=== PATIENT | male | born 1985 | race Caucasian/White ===

== ENCOUNTER 2017-01-28 18:37 | Observation (INO) ==
--- NOTE | 2017-01-28 19:04 | Emergency Department Note ---
Disposition Clinical Impression: Cellulitis Qualifiers: Site of cellulitis: extremity Site of cellulitis of extremity: lower extremity Laterality: left Qualified Code(s): L03.116 - Cellulitis of left lower limb Disposition: Admitted As Inpatient Condition: Serious Time of Disposition: 22:43 Extremity Problem HPI - General Chief complaint: ED Extremity Problem,Nontraumatic Stated complaint: L leg swelling/redness x3 days Time Seen by Provider: 01/28/17 18:49 Source: patient, police Limitations: language barrier Nursing Notes Reviewed: Yes Vital Signs Reviewed: Yes - History of Present Illness HPI Narrative: Mr. Dugan is a 31-year-old male that presents for left lower extremity pain swelling with erythema for the past 3 days. Patient currently incarcerated, notes swelling began his foot 3 days ago, the following day noted increased swelling in his calf with erythema at that time he states he reported this to the nurse. Patient denies history cellulitis, and denies injury. Patient reports numbness and tingling in his leg and states the pain is a throbbing sensation; currently 10/10 in severity. He notes chills, sweats, vomiting. Denies bloody emesis, denies diarrhea or constipation, denies the abdominal pain. Patient states pain is worse with movement. He also notes discomfort and swelling in his left inguinal area. Currently has dorsalis pedis pulses bilaterally. Pt Subjective Complaint: extremity pain, extremity swelling Onset (ago): day(s) Consistency: Worsening Injury Location: left, lower extremity Pain Scale: 10 Quality: other (throbbing) Improves with: nothing Worsens with: range of motion Associated symptoms: Reports: fever, swelling, redness. Denies: chest pain, shortness of breath, abdominal pain - Related Data Home Medications Medication Instructions Recorded Confirmed No Known Home Drugs 01/28/17 01/28/17 Allergies Allergy/AdvReac Type Severity Reaction Status Date / Time No Known Allergies Allergy Verified 07/17/15 11:31 All systems ED: reviewed and negative except as stated. Constitutional: Reports: fever, chills Cardiovascular: Denies: chest pain Respiratory: Denies: cough, dyspnea Gastrointestinal: Reports: nausea, vomiting. Denies: abdominal pain Musculoskeletal: Reports: joint swelling (L ankle) Neurological: Reports: numbness, paresthesias (L lower extremity) Past Medical History - Past Medical History Attestation: Yes The following information was validated with the patient. Source: patient Medical history: Reports: no medical history Surgical history: Reports: other Psychiatric history: Reports: no psych history - Social History Smoking Status: Current every day smoker Smokeless Tobacco Status: No Alcohol use: Reports: occasionally Drug use: Reports: none Physical Exam - General Limitations: language barrier General appearance: alert, in no apparent distress - Head Head exam: atraumatic, normocephalic - Eye Eye exam: Present: normal appearance, EOMI, miosis - ENT ENT exam: normal exam, mucous membranes moist - Neck Neck exam: Present: normal inspection, full ROM - Chest Chest inspection: Present: normal inspection, symmetric chest wall rise - Respiratory Respiratory exam: Present: normal lung sounds bilaterally. Absent: respiratory distress - Cardiovascular Cardiovascular exam: Present: regular rate, normal rhythm, +S1, +S2 - Abdominal Exam Abdominal exam: Present: soft, Non-Tender, normal bowel sounds. Absent: distention, guarding, rebound - Expanded Lower Extremity Exam Hip/Pelvis exam: Present: tenderness (L inguinal region) Knee exam: Present: full ROM, erythema. Absent: swelling Lower leg exam: Present: tenderness, swelling, ecchymosis, erythema, other ( decreased ROM) Ankle exam: Present: tenderness, swelling, erythema Foot/toe exam: Present: other (2+ dorsal pedis pulses bilaterally) Neurovascular/Tendon exam: Present: normal capillary refill - Neurological Exam Neurological exam: Present: alert, oriented X3 - Psychiatric Psychiatric exam: Present: normal affect, normal mood - Skin Skin exam: Present: warm, dry, intact Course - Consultations Consultation #1: Spoke to Dr. Saucedo whom agreed to accept patient pending CT results. Time: 22:24 Vital Signs Temperature 98.3 F 01/28/17 18:39 Pulse Rate 72 01/28/17 18:39 Respiratory Rate 18 01/28/17 18:39 Blood Pressure 123/73 01/28/17 18:39 O2 Sat by Pulse Oximetry 100 01/28/17 18:39 Temperature 98.3 F 01/28/17 18:39 Pulse Rate 74 01/28/17 22:37 Respiratory Rate 18 01/28/17 22:53 Blood Pressure 126/76 01/28/17 22:53 O2 Sat by Pulse Oximetry 100 01/28/17 22:37 Oxygen Delivery Oxygen Delivery Room Air Extremity Problem, Nontraumati - Lab Data Lab results reviewed: Yes I reviewed the patient's lab results. Result diagrams: 01/28/17 19:16 01/28/17 19:16 Lab Results 01/28/17 01/28/17 01/28/17 Range/Units 19:16 19:16 19:16 WBC 21.5 H (4.3-11.1) K/mcL RBC 4.08 L (4.19-5.50) M/mcL Hgb 11.5 L (12.9-16.9) g/dL Hct 34.8 L (37.5-50.1) % MCV 85.3 (83.0-100.0) fL MCH 28.2 (28.0-33.3) pg MCHC 33.0 (31.6-35.5) g/dL RDW 14.6 H (11.5-14.5) % Plt Count 225 (140-400) K/mcL MPV 9.9 (9.4-12.4) fL Immature Gran % 0.6 (0-4) % Seg Neutrophils % 89.8 % Lymphocytes % 5.5 % Monocytes % 3.7 % Eosinophils % 0.2 % Basophils % 0.2 % Neutrophils # 19.4 H (1.6-8.9) K/mcL Lymphocytes # 1.2 (0.6-4.6) K/mcL Monocytes # 0.8 (0.0-1.3) K/mcL Eosinophils # 0.0 (0.0-0.6) K/mcL Basophils # 0.0 (0.0-0.2) K/mcL Sodium 135 L (136-145) mEq/L Potassium 3.9 (3.5-4.5) mEq/L Chloride 103 (98-109) mEq/L Carbon Dioxide 25 (19-29) mEq/L BUN 18 (8-26) mg/dL Creatinine 0.84 (0.72-1.25) mg/dL Est GFR ( Amer) > 60 (> 60) Est GFR (Non-Af Amer) > 60 (> 60) BUN/Creatinine Ratio 21 (6-26) Glucose 121 H (70-99) mg/dL Calculated Osmolality 283 (280-300) Lactic Acid 0.9 (0.5-2.2) mmol/L Calcium 8.7 (8.6-10.8) mg/dL - Radiology Data Radiology results reviewed: Yes I reviewed the patient's radiology results. Lower Extremity CT 01/28/17 19:32 IMPRESSION: Subcutaneous edema and skin thickening of the left lower leg below the level of the knee suggesting cellulitis. Small focal area of fluid measuring 3.3 x 0.6 x 3.5 cm in size along the posteromedial aspect of the mid left lower leg suggesting a subcutaneous abscess. Left inguinal and left pelvic lymphadenopathy suggesting reactive lymphadenopathy. Recommend follow-up to resolution. Small amount of free fluid in the dependent pelvis suggesting an inflammatory process. This is abnormal for a male patient. No acute bone or joint abnormality. No deep soft tissue infection. D/ / 01/28/2017 22:59:34 Florencio Carr MD / Bernadette Coe Interpreting Provider: Florencio Carr MD
[2017-01-28] MEDS ORDERED: Vancomycin 1,250 MG in D5% in Water 250 ML IVPB ONE (19:34)
--- NOTE | 2017-01-28 19:40 | Emergency Department Note ---
START Narrative - START START: I did see the patient with the [facility] admin Dr. tierney and I did participate in the important elements of history, exam, diagnosis and plan. Patient does have 3 days of left leg pain and swelling and redness and some lymph nodes are present on palpation in left groin. Patient's leg does have erythema as well as ecchymosis and I do not palpate any crepitus. There is edema. Dorsal pedal pulse is 2+. Patient will be started on vancomycin. I do not suspect DVT. He will be admitted to the hospital. Labs as well as CT scan to look for necrotizing soft tissue infection are pending 1938
[2017-01-28 21:18] LABS: Basophils % 0.2 %; Eosinophils % 0.2 %; Hematocrit 34.8 % (37.5-50.1); Hemoglobin 11.5 g/dL (12.9-16.9); Immature Granulocytes % 0.6 % (0-4); Lymphocytes # 1.2 K/mcL (0.6-4.6); Lymphocytes % 5.5 %; Mean Corpuscular Hemoglobin 28.2 pg (28.0-33.3); Mean Corpuscular Volume 85.3 fL (83.0-100.0); Mean Platelet Volume 9.9 fL (9.4-12.4); Monocytes # 0.8 K/mcL (0.0-1.3); Monocytes % 3.7 %; Neutrophils # 19.4 K/mcL (1.6-8.9); Platelet Count 225 K/mcL (140-400); Red Blood Count 4.08 M/mcL (4.19-5.50); Red Cell Distribution Width 14.6 % (11.5-14.5); Segmented Neutrophils % 89.8 %
[2017-01-28 21:29] LABS: BUN/Creatinine Ratio 21 (6-26); Blood Urea Nitrogen 18 mg/dL (8-26); Calcium 8.7 mg/dL (8.6-10.8); Carbon Dioxide 25 mEq/L (19-29); Chloride 103 mEq/L (98-109); Glucose 121 mg/dL (70-99); Osmolality,Calculated 283 (280-300); Potassium 3.9 mEq/L (3.5-4.5); Sodium 135 mEq/L (136-145); eGFR For African Americans > 60 (> 60); eGFR For Non-African Americans > 60 (> 60)
[2017-01-29] MEDS ORDERED: *HR* HYDROmorphone (PF) 1 MG/ML SYRINGE IVP PRN (08:20)
[2017-01-29] MEDS ORDERED: MOM Conc 10 ML UD.LIQ PO PRN (08:20)
[2017-01-29] MEDS ORDERED: Naloxone 0.4 MG/ML INJ IVP PRN (08:20)
[2017-01-29] MEDS ORDERED: Piperacillin/Tazobactam 4.5 GM in D5% in Water (Mini-Bag+) 100 ML IVPB STA (08:20)
[2017-01-29] MEDS ORDERED: Benzonatate 100 MG CAPSULE PO PRN (08:20)
[2017-01-29] MEDS ORDERED: Mag Hydrox/Al Hydrox/Simeth 30 ML UDC PO PRN (08:20)
[2017-01-29] MEDS ORDERED: Acetaminophen 325 MG TABLET PO PRN (08:20)
[2017-01-29] MEDS ORDERED: *HR* Promethazine 25 MG/ML VIAL IVP PRN (08:20)
[2017-01-29] MEDS ORDERED: Ketorolac 30 MG/ML VIAL IVP STA (08:20)
[2017-01-29] MEDS ORDERED: Ipratropium/Albuterol Neb 3 ML IH PRN (08:20)
[2017-01-29] MEDS ORDERED: *HR* LORazepam 0.5 MG TABLET PO PRN (08:27)
--- NOTE | 2017-01-29 08:33 | Internal Med History&Physical ---
Date of Encounter: 01/29/17 Time of Encounter: 08:30 Assessment and Plan (1) Cellulitis of left lower extremity Current visit: Yes Status: Acute . (2) Cutaneous abscess of left lower extremity Current visit: Yes Status: Acute . (3) SIRS (systemic inflammatory response syndrome) Current visit: Yes Status: Acute . (4) Sepsis affecting skin Current visit: Yes Status: Acute . (5) Ascending lymphangitis Current visit: Yes Status: Acute . (6) Lymphadenopathy, inguinal Current visit: Yes Status: Acute . Internal Medicine - H&P: HPI Chief complaint: Pain swelling and redness left lower leg Admitted From: Emergency Dept Plans for Post Hospital Care: Home History of present illness: Mr. Dugan is a 31 year old male admitted to [facility] via the emergency department when he is escorted by police to evaluate pain swelling and erythema of the left lower extremity of approximately 3 days' duration. Patient is currently incarcerated. Notes swelling began in his left foot approximately 3 days prior to this presentation and progressively ascended into the leg. Increasing swelling in his calf with discomfort especially at the weight-bearing was appreciated. The patient denies any prior history of cellulitis of the extremities. He does however provide a significant history of prior methicillin sensitive Staphylococcus aureus infection causing pneumonia and associated empyema of the right chest. This required chest tube placement and drainage of the empyema and finally VATS procedure (not confirmed). 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 He denies however any prior history of similar development requiring prolonged antibiotic coverage or surgical intervention. Numbness and tingling in his left leg especially. Pain when not escalated to some throbbing stabbing sensation at a 10/10 severity. He has experienced some feverishness and chills sweats nausea and vomiting. He denies any episodes of bleeding events, diarrhea or constipation, abdominal pain chest pain or flank pain. His lower extremity pain is increased with movement and no present is lessened at rest. He has also noted discomfort and swelling in his left inguinal area with this illness. Vital signs findings the patient afebrile pulse respiration was blood pressure normal. O2 saturation on room air 100%. CBC noted a white blood cell count of 21.5 and hemoglobin of 11.5 platelets at 225,000. RDW 14.6. Differential showed a increase in neutrophils. Metabolic panel was normal except mild hyponatremic at 135 and hyperglycemia at 121. Lactic acid 0.9. CT of the lower extremity demonstrated subcutaneous edema and skin thickening of the left lower leg below the knee suggesting cellulitis. Small focal area of fluid collection 3 x 3 x 0.6 x 3.5 cm in size along the posterior medial aspect of the mid left lower leg suggesting a subcutaneous abscess. Left inguinal and left pelvic lymphadenopathy suggestive of reactive lymphadenopathy noted. Small amount of free fluid in the dependent pelvis suggesting an inflammatory process also noted. Preliminary impression suggests progressive cellulitis of the left lower extremity with radiographic suggestion of evolving abscess of the posterior medial aspect of the mid left lower leg. Associated inflammatory left pelvic and left inguinal adenopathy and free fluid in the dependent pelvis also noted. Systemic inflammatory response syndrome and sepsis criteria have been met at presentation. Workup and treatments will progress preventatively. The patient was visited and interviewed and examined. Cumulative laboratory and radiographic data base will be considered and discussed. Pertinent ancillary medical records including ECW and PCI documentation when available was reviewed and considered. Given the patient's presenting concerns, past medical history, clinical findings and symptoms, he is admitted at this time will undergo further evaluation and disposition. Orders were written as per Computerized physician blood bank order control clerk system.......................................................................... .................... Consultative opinion will be sought as clinical circumstances justify. Pain management needs will be addressed. Laboratory /radiographic data base will be updated as appropriate. Studies include: Cultures of blood urine sputum, MRSA swab, cardiac injury panel, BNP, cpk, pt/inr, aptt, metabolic and hematologic panel, magnesium, phosphorus, ionized calcium, thyroid panel, lipid profile, A1c, C-peptide, CRP, sedimentation rate, respiratory infection profile, respiratory virus panel, blood gas, UA, UDS, lactic acid, serologies, etc. Precautions: Aspiration, fall, delirium protocol/surveillance initiated. Telemetry with continuous hemodynamic monitoring and pulse oximetry initiated. Empiric antibiotic coverage: Intravenous vancomycin and Zosyn pending culture data. Special studies: CT Leg/LL extremity, chest x-ray, telemetry, EKG, LLE venous US. Pulmonary toilet: Incentive spirometry. PRN: aerosol bronchodilator, mucolytic, antitussive, supplemental oxygen. Corticosteroid therapy PRN. CPAP/BiPAP supplemental oxygen deliveryPRN. Aerosol Mucomyst therapy PRN. Fluid and electrolyte repletion efforts will proceed. Careful attention to fluid balance and renal recovery will be emphasized. Avoidance of nephrotoxic exposure and adverse drug drug interaction in the setting of impaired renal function will be monitored closely. Acute coronary syndrome protocol/surveillance initiated. DVT and PUD prophylaxis initiated: PPI therapy, intermittent pneumatic cuffs. Subcutaneous heparin was held due to thrombocytopenia. Early ambulation will be encouraged. Immunization updates recommended. Influenza and pneumococcal vaccinations as part of ongoing preventative healthcare recommendations strongly recommended. Smoking cessation counseling briefly addressed. Patient accepts nicotine substitution during this admission. Advanced care directive discussion briefly addressed. Patient does not declare any healthcare restrictions at this time. Cardiovascular risk appraisal and cardiovascular risk reduction efforts will be emphasized. Physical/ occupational therapy may be counseled to evaluate patient's functional capacity and progressive mobility if circumstances justify. Nutrition/dietary education counseling may be considered as circumstances justify. Outpatient medication schedules will be reviewed, confirmed and facilitated as appropriate. Reconciliation of home treatments including adjustments, substitutions and reintroduction into the treatment regimen will address necessary maintenance therapies for chronic pre-existing medical conditions. Plan of care has been reviewed and discussed in detail with the patient. Questions addressed. Hospital course dictated by clinical findings, treatment response and potential consultative interventions. Patient is a risk for further acute clinical decline due to his findings, chief complaints and comorbid conditions. Condition is serious. Prognosis is guarded. CODE STATUS is full. Past Med Surg Social Fam HX - Past Medical History Source: old records reviewed Medical history: other (History of methicillin susceptible Staphylococcus aureus pneumonia with right empyema status post chest tube drainage and VATS procedure.) Psychiatric history: no psych history - Past Surgical History Surgical History: other ((?VATS procedure following) chest tube drainage of empyema.) - Social History Smoking Status: Current every day smoker Smokeless Tobacco Status: No Alcohol use: occasionally Drug use: none, other (Primary history of IVDU and non-IVDU. Patient reports abstinence greater than 8 years.) Occupational status: unemployed Current living situation: Home, With Family Activity Level: Independent ambulation, Mostly sedentary Recent Out of Country Travel Within the Last 8 Weeks: No Exposure or Possible Exposure to Illness During Travel: No - Family History Mother Living Status: Still Living Hx Family Cancer: Yes (Breast cancer) Internal Medicine - H&P: Meds No Known Home Drugs 01/28/17 [History] Allergies No Known Allergies Allergy (Verified 07/17/15 11:31) All Systems PM: A 10-system review of systems was performed and is negative for pertinent findings except as documented above in the HPI. Allergies Allergy/AdvReac Type Severity Reaction Status Date / Time No Known Allergies Allergy Verified 07/17/15 11:31 Patient Problems (Last Updated 01/29/17 @ 08:33 by Amaury Ash MD) Cellulitis (Acute Medical) L03.90 Cellulitis of left lower extremity (Acute Medical) L03.116 Cutaneous abscess of left lower extremity (Acute Medical) L02.416 SIRS (systemic inflammatory response syndrome) (Acute Medical) R65.10 Sepsis affecting skin (Acute Medical) L02.91 Contusion, multiple sites (Inactive Medical) Fall (Inactive Medical) - Constitutional Constitutional: as per HPI, chills, fever(s), malaise, no night sweats - EENT Eyes: as per HPI, no change in vision, no discharge, no pain, no photophobia Ears: as per HPI, no ear discharge, no ear pain, no tinnitus Nose, mouth and throat: as per HPI, bleeding gums, dental pain, other, no dysphagia, no nasal discharge, no neck pain, no sore throat - Cardiovascular Cardiovascular ROS IM: as per HPI, no chest pain, no diaphoresis, no dyspnea, no lightheadedness, no palpitations, no syncope - Respiratory Respiratory: as per HPI, no cough, no dyspnea, no wheezing, no excessive phlegm production - Gastrointestinal Gastrointestinal: as per HPI, nausea, vomiting, no abdominal pain, no diarrhea, no hematemesis, no hematochezia, no melena - Genitourinary Genitourinary ROS male: as per HPI - Musculoskeletal Musculoskeletal ROS IM: as per HPI, joint swelling (L ankle), other, no numbness , no tingling - Integumentary Integumentary IM: as per HPI, erythema, new lesions, rash, other, no unusual bruising - Neurological Neurological ROS: as per HPI, numbness (LLE), paresthesias, no confusion, no convulsions, no focal weakness, no tingling, no tremor(s) - Psychiatric Psychiatric: as per HPI - Endocrine Endocrine IM: as per HPI - Hematologic/Lymphatic Hematologic/Lymphatic: as per HPI, no easy bruising - Allergic/Immunologic Allergic/Immunologic: as per HPI - Constitutional Vitals: Temp Pulse Resp BP Pulse Ox 98.2 F 77 18 128/71 100 01/29/17 06:43 01/29/17 06:43 01/29/17 06:43 01/29/17 06:43 01/29/17 06:43 Vital Signs Temp Pulse Resp BP Pulse Ox 01/29/17 06:43 98.2 F 77 18 128/71 100 01/29/17 03:27 97.9 F 79 16 122/69 97 01/28/17 23:27 98.3 F 97 17 130/64 100 01/28/17 22:53 18 126/76 01/28/17 22:37 74 18 126/76 100 01/28/17 21:20 76 18 126/78 100 01/28/17 18:39 98.3 F 72 18 123/73 100 Intake and Output 01/28/17 01/29/17 01/29/17 23:59 07:59 15:59 Intake Total 0 / 0 Output Total 0 / 0 Balance 0 / 0 Intake: Oral 0 / 0 Output: Urine 0 / 0 Other: Weight 70 kg General appearance: Present: cooperative, disheveled, mild distress, A&O X 3, answers questions appropriately - Head Head exam: Present: atraumatic, normocephalic - Eye Eye exam: Present: EOMI, PERRL, conjuntiva pink, sclera anicteric Pupils: Present: normal accommodation, PERRL - ENT ENT exam: Present: mucous membranes moist, normal oropharynx (Very poor dentition.) - Neck Neck exam general surgery: Present: full ROM, supple, trachea midline. Absent: lymphadenopathy, nuchal rigidity - Respiratory Respiratory exam: Present: decreased breath sounds. Absent: accessory muscle use, CTAB, rales, rhonchi, wheezes - Cardiovascular Cardiovascular exam: Present: distant heart sounds, RRR, +S1, +S2. Absent: diastolic murmur, gallop, rubs, systolic murmur - GI/Abdominal GI/Abdominal exam: Present: normal bowel sounds, soft, no peritoneal signs. Absent: distended, tenderness - Extremities Exam Extremities exam: Present: calf tenderness, pedal edema, tenderness, warm, radial pulses palpable and symetrical. Absent: cyanotic, normal inspection - Expanded Lower Extremities Exam Lower Leg exam: Present: erythema, swelling, tenderness. Absent: full ROM, normal inspection, palpable cord Ankle exam: Present: erythema, swelling, tenderness. Absent: full ROM, normal inspection Foot/Toe exam: Present: erythema, swelling, tenderness. Absent: full ROM Neuro vascular tendon exam: Present: no vascular compromise, significant pain with passive ROM of distal joint. Absent: motor deficit, pulse deficit, sensory deficit Gait: Present: not tested/not observed - Neurological Exam Neurological exam: Present: alert, CN II-XII intact, oriented X3, no focal deficits. Absent: pronater drift, facial droop, speech deficit - Psychiatric Psychiatric exam: Present: normal affect, normal mood - Skin Skin exam: Present: dry, erythema, intact, rash, warm - Expanded Skin Exam Type of lesion: Present: abscess, rash Distribution of rash: Present: LLE Description of rash: Present: crusting, erythematous, fluctuant, macular, swelling, tenderness Internal Med - H&P Results - Labs CBC & Chem 7: 01/28/17 19:16 01/28/17 19:16 Labs: Vital Signs Temp Pulse Resp BP Pulse Ox 01/29/17 06:43 98.2 F 77 18 128/71 100 01/29/17 03:27 97.9 F 79 16 122/69 97 01/28/17 23:27 98.3 F 97 17 130/64 100 01/28/17 22:53 18 126/76 01/28/17 22:37 74 18 126/76 100 01/28/17 21:20 76 18 126/78 100 01/28/17 18:39 98.3 F 72 18 123/73 100 Intake and Output 01/28/17 01/29/17 01/29/17 23:59 07:59 15:59 Intake Total 0 / 0 Output Total 0 / 0 Balance 0 / 0 Intake: Oral 0 / 0 Output: Urine 0 / 0 Other: Weight 70 kg Abnormal lab results WBC 21.5 K/mcL (4.3-11.1) H 01/28/17 19:16 RBC 4.08 M/mcL (4.19-5.50) L 01/28/17 19:16 Hgb 11.5 g/dL (12.9-16.9) L 01/28/17 19:16 Hct 34.8 % (37.5-50.1) L 01/28/17 19:16 RDW 14.6 % (11.5-14.5) H 01/28/17 19:16 Neutrophils # 19.4 K/mcL (1.6-8.9) H 01/28/17 19:16 Sodium 135 mEq/L (136-145) L 01/28/17 19:16 Glucose 121 mg/dL (70-99) H 01/28/17 19:16 Laboratory Last Values WBC 21.5 K/mcL (4.3-11.1) H 01/28/17 19:16 RBC 4.08 M/mcL (4.19-5.50) L 01/28/17 19:16 Hgb 11.5 g/dL (12.9-16.9) L 01/28/17 19:16 Hct 34.8 % (37.5-50.1) L 01/28/17 19:16 MCV 85.3 fL (83.0-100.0) 01/28/17 19:16 MCH 28.2 pg (28.0-33.3) 01/28/17 19:16 MCHC 33.0 g/dL (31.6-35.5) 01/28/17 19:16 RDW 14.6 % (11.5-14.5) H 01/28/17 19:16 Plt Count 225 K/mcL (140-400) 01/28/17 19:16 MPV 9.9 fL (9.4-12.4) 01/28/17 19:16 Immature Gran % 0.6 % (0-4) 01/28/17 19:16 Seg Neutrophils % 89.8 % 01/28/17 19:16 Lymphocytes % 5.5 % 01/28/17 19:16 Monocytes % 3.7 % 01/28/17 19:16 Eosinophils % 0.2 % 01/28/17 19:16 Basophils % 0.2 % 01/28/17 19:16 Neutrophils # 19.4 K/mcL (1.6-8.9) H 01/28/17 19:16 Lymphocytes # 1.2 K/mcL (0.6-4.6) 01/28/17 19:16 Monocytes # 0.8 K/mcL (0.0-1.3) 01/28/17 19:16 Eosinophils # 0.0 K/mcL (0.0-0.6) 01/28/17 19:16 Basophils # 0.0 K/mcL (0.0-0.2) 01/28/17 19:16 Sodium 135 mEq/L (136-145) L 01/28/17 19:16 Potassium 3.9 mEq/L (3.5-4.5) 01/28/17 19:16 Chloride 103 mEq/L (98-109) 01/28/17 19:16 Carbon Dioxide 25 mEq/L (19-29) 01/28/17 19:16 BUN 18 mg/dL (8-26) 01/28/17 19:16 Creatinine 0.84 mg/dL (0.72-1.25) 01/28/17 19:16 Est GFR ( Amer) > 60 (> 60) 01/28/17 19:16 Est GFR (Non-Af Amer) > 60 (> 60) 01/28/17 19:16 BUN/Creatinine Ratio 21 (6-26) 01/28/17 19:16 Glucose 121 mg/dL (70-99) H 01/28/17 19:16 Calculated Osmolality 283 (280-300) 01/28/17 19:16 Lactic Acid 0.9 mmol/L (0.5-2.2) 01/28/17 19:16 Calcium 8.7 mg/dL (8.6-10.8) 01/28/17 19:16 - Impressions Lower Extremity CT 01/28/17 19:32 IMPRESSION: Subcutaneous edema and skin thickening of the left lower leg below the level of the knee suggesting cellulitis. Small focal area of fluid measuring 3.3 x 0.6 x 3.5 cm in size along the posteromedial aspect of the mid left lower leg suggesting a subcutaneous abscess. Left inguinal and left pelvic lymphadenopathy suggesting reactive lymphadenopathy. Recommend follow-up to resolution. Small amount of free fluid in the dependent pelvis suggesting an inflammatory process. This is abnormal for a male patient. No acute bone or joint abnormality. No deep soft tissue infection. D/ / 01/28/2017 22:59:34 Florencio Carr MD / Bernadette Coe Interpreting Provider: Florencio Carr MD - Attending Attestation Allergies No Known Allergies Allergy (Verified 07/17/15 11:31) Home Medications Medication Instructions Recorded Confirmed Type No Known Home Drugs 01/28/17 01/28/17 History I & O 01/26/17 01/27/17 01/28/17 01/29/17 23:59 23:59 23:59 23:59 Intake Total 0 / 0 Output Total 0 / 0 Balance 0 / 0 Weight 70 kg Intake: Oral 0 / 0 Output: Urine 0 / 0 Medications Acetaminophen (Tylenol) 650 mg PO Q6HR PRN PRN Reason: Mild Pain (1-3) Stop: 07/31/17 08:21 Al Hydrox/Mg Hydrox/Simethicone (Maalox) 15 ml PO Q6HR PRN PRN Reason: Dyspepsia Stop: 07/31/17 08:21 Albuterol/Ipratropium (Duoneb) 3 ml IH [id number] PRN; Protocol PRN Reason: Shortness Of Breath/Wheezing Stop: 07/31/17 08:21 Benzonatate (Tessalon) 200 mg PO TID PRN PRN Reason: Cough Stop: 07/31/17 08:21 Diphenhydramine HCl (Benadryl) 25 mg PO Q6HR PRN PRN Reason: Allergic Symptoms Stop: 07/31/17 08:28 Docusate Sodium (Colace) 100 mg PO DAILY ERIKA Stop: 07/31/17 09:01 Famotidine (Pepcid) 20 mg PO BID ERIKA Stop: 07/31/17 09:01 Guaifenesin (Mucinex) 600 mg PO BID ERIKA Stop: 07/31/17 09:01 Hydromorphone HCl (Dilaudid) 0.5 mg IVP Q4HR PRN PRN Reason: Severe Pain (7-10) Stop: 07/31/17 08:21 Sodium Chloride (0.9 % Sodium Chloride) 1,000 mls @ 75 mls/hr IVC .[id number] ERIKA Stop: 07/31/17 08:31 Piperacillin Sod/Tazobactam (Sod 4.5 gm/ Dextrose) 100 mls @ 100 mls/hr IVPB ONCE STA PRN Reason: Protocol Stop: 01/29/17 09:19 Piperacillin Sod/Tazobactam (Sod 3.375 gm/ Dextrose) 100 mls @ 25 mls/hr IVPB Q8HR ERIKA PRN Reason: Protocol Stop: 07/31/17 16:01 Vancomycin HCl 1,000 mg/ (Dextrose) 250 mls @ 167 mls/hr IVPB RPHPROT ERIKA PRN Reason: Protocol Stop: 07/31/17 09:01 Ketorolac Tromethamine (Toradol) 30 mg IVP ONCE STA Stop: 01/29/17 08:21 Lorazepam (Ativan) 0.5 mg PO HS PRN PRN Reason: Insomnia Stop: 07/31/17 08:28 Magnesium Hydroxide (Milk Of Magnesia Conc) 10 ml PO DAILY PRN PRN Reason: Indigestion Stop: 07/31/17 08:21 Melatonin (Melatonin) 3 mg PO HS ERIKA Stop: 07/31/17 21:01 Naloxone HCl (Narcan) 0.4 mg IVP Q2MIN PRN PRN Reason: Opioid Reversal Stop: 07/31/17 08:21 Nicotine (Nicoderm) 21 mg TD DAILY ERIKA PRN Reason: Protocol Stop: 07/31/17 09:01 Oxycodone HCl (Roxicodone) 10 mg PO Q6HR PRN PRN Reason: Moderate Pain (4-6) Stop: 07/31/17 08:21 Promethazine HCl (Phenergan) 12.5 mg IVP Q6HR PRN PRN Reason: Nausea And Vomiting Stop: 07/31/17 08:21 Discontinued Medications Vancomycin HCl 1,250 mg/ (Dextrose) 250 mls @ 167 mls/hr IVPB ONCE ONE PRN Reason: Protocol Stop: 01/28/17 21:03 Last Admin: 01/28/17 21:55 Dose: 167 mls/hr Nursing Notes 01/29/17 06:08 Nurse Note by Loan Camarena Late Entry: [address] Ash that the PT had been on the floor for a couple hours (Originally Dr. Saucedo was admitting this PT, he then informed this RN when a second message was sent regarding this PT that Dr. Ash was seeing for this PT) and Dr. Ash stated that he was working on admissions and would be getting to this PT shortly. Still awaiting orders at this time (0610). Initialized on 01/29/17 06:08 - END OF NOTE 01/29/17 03:38 Nurse Note by Loan Camarena This RN paged Dr. Saucedo a second time to obtain orders for PT and Dr. Saucedo stated that Dr. Ash is taking care of this PT. Notifying Dr. Ash now. Initialized on 01/29/17 03:38 - END OF NOTE 01/29/17 01:01 Nurse Note by Loan Camarena This RN notified Dr. Saucedo that PT has arrived to the floor and is experiencing 10/10 pain and requesting something to eat and drink. Initialized on 01/29/17 01:01 - END OF NOTE 01/28/17 23:07 Nurse Note by Ashley Pierre IV vancomycin placed on dial-a-flow as there are no IV pumps in ER. Initialized on 01/28/17 23:07 - END OF NOTE 01/28/17 22:10 Nurse Note by Ashley Pierre Pt to CT at this time. Initialized on 01/28/17 22:10 - END OF NOTE 01/28/17 22:10 Transport Report by Neema Sims Date: 01/28/17 Transport Method: Stretcher No Known Allergies Allergy (Verified 07/17/15 11:31) Resuscitation Status 01/28/17 19:32 CT LE LT w con [CT] Stat Mode Of Transportation: Stretcher Reason For Exam: Concern for NST infection vs cellulitis Order Doctor: Miller Richmond Exam Performed At:: [facility] Additional Notes/Special Instructions: LABS @2037 Allergic to Contrast: No Oxygen: Mental Status: Fall Risk: Isolation: Nurse Required for Transport: No ___ Yes Limb Restrictions: No ___ Yes Behavioral issue/Risk for Elopement: No ___ Yes Telemetry Room Notification: Destination: MRI XRAY STRESS ULTRASOUND CT DIALYSIS ENDO OTHER: Depart Time: Nurse: Transporter: Arrive Time: Received by: ___ Return Time: Nurse: Transporter: ] Initialized on 01/28/17 22:10 - END OF NOTE 01/28/17 21:09 Nurse Note by Ashley Pierre RN unable to gain IV access using ultrasound at this time. Initialized on 01/28/17 21:09 - END OF NOTE 01/28/17 20:39 Nurse Note by Ashley Pierre Lab is at bedside at this time. Initialized on 01/28/17 20:39 - END OF NOTE 01/28/17 20:31 Nurse Note by Ashley Pierre RN is at bedside to attempt IV with ultrasound. Initialized on 01/28/17 20:31 - END OF NOTE 01/28/17 19:52 Nurse Note by Ashley Pierre Lab is at bedside. This RN attempted IV access x 2 , with no success. Initialized on 01/28/17 19:52 - END OF NOTE 01/28/17 19:37 Nurse Note by Ashley Pierre Pt is at CT at this time. Initialized on 01/28/17 19:37 - END OF NOTE 01/28/17 19:28 Transport Report by Clifton Gu Date: 01/28/17 Transport Method: Stretcher No Known Allergies Allergy (Verified 07/17/15 11:31) Resuscitation Status 01/28/17 19:16 CT LE LT wo con [CT] Stat Mode Of Transportation: Stretcher Reason For Exam: concern for NST infection Order Doctor: Miller Richmond Exam Performed At:: [facility] Allergic to Contrast: No Oxygen: Mental Status: Fall Risk: Isolation: Nurse Required for Transport: No ___ Yes Limb Restrictions: No ___ Yes Behavioral issue/Risk for Elopement: No ___ Yes Telemetry Room Notification: Destination: MRI XRAY STRESS ULTRASOUND CT DIALYSIS ENDO OTHER: Depart Time: Nurse: Transporter: Arrive Time: Received by: ___ Return Time: Nurse: Transporter: ] Initialized on 01/28/17 19:28 - END OF NOTE Orders 01/28/17 19:16 Basic Metabolic Panel Stat Comment: Specimen: Send someone from the department to collect Complete Blood Count [HEME] Stat Comment: Specimen: Send someone from the department to collect Lactate [Lactic Acid ([facility] Only)] Stat Comment: Specimen: Send someone from the department to collect 01/28/17 19:32 CT LE LT w con [CT] Stat Mode Of Transportation: Stretcher Reason For Exam: Concern for NST infection vs cellulitis Order Doctor: Miller Richmond Exam Performed At:: [facility] Additional Notes/Special Instructions: LABS @2038 Allergic to Contrast: No 01/28/17 19:34 Vancomycin [Vancocin] 1,250 mg D5% in Water [Dextrose 5%] 250 ml IVPB ONCE 01/28/17 21:[address] Stat Comment: Reason for Visit: left LE cellulitis 01/29/17 08:20 Falls precautions (Travon-Beard [RC] ONCE Vital Signs Assessment [RC] Q4H Activated Partial Thrombo Time [COAG] Routine Specimen: Send someone from the department to collect Comment: C-Reactive Protein Routine Specimen: Send someone from the department to collect Comment: Complete Blood Count [HEME] Routine Specimen: Send someone from the department to collect Comment: Comprehensive Metabolic Panel Routine Specimen: Send someone from the department to collect Comment: Drug Screen, Urine [UCHEM] Routine Specimen: Pre-Collection Label Comment: Erythrocyte Sedimentation Rate [HEME] Routine Specimen: Send someone from the department to collect Comment: Hgb A1C Routine Specimen: Send someone from the department to collect Comment: Lactic Acid ([facility] Only) Routine Specimen: Send someone from the department to collect Comment: Magnesium Routine Specimen: Send someone from the department to collect Comment: Phosphorous Routine Specimen: Send someone from the department to collect Comment: Prothrombin Time INR [COAG] Routine Specimen: Send someone from the department to collect Comment: Thyroid Stimulating Hormone Routine Specimen: Send someone from the department to collect Comment: Urinalysis reflex Microscopic [URIN] Routine Specimen: Send someone from the department to collect Comment: Venous Blood Gas Routine Specimen: Send someone from the department to collect Comment: Acetaminophen [Tylenol] 650 mg PO Q6HR PRN Benzonatate [Tessalon] 200 mg PO TID PRN HYDROmorphone (PF) [Dilaudid] 0.5 mg IVP Q4HR PRN Ipratropium/Albuterol Neb [Duoneb] 3 ml IH [id number] PRN Ketorolac [Toradol] 30 mg IVP ONCE STA MOM Conc [Milk of Magnesia Conc] 10 ml PO DAILY PRN Mag Hydrox/Al Hydrox/Simeth [Maalox] 15 ml PO Q6HR PRN Naloxone [Narcan] 0.4 mg IVP Q2MIN PRN OxyCODONE Immed Rel [Roxicodone] 10 mg PO Q6HR PRN Piperacillin/Tazobactam [Zosyn] 4.5 gm D5% in Water (Mini-Bag+) [Dextrose 5% ( Minibag+) 100 ML] 100 ml IVPB ONCE Promethazine [Phenergan] 12.5 mg IVP Q6HR PRN Resuscitation Status: Active [RES] Routine Resuscitation Status: Full Code Comment: 01/29/17 08:21 Measure intake and output [RC] QSHIFT Measure weight [RC] DAILY Peripheral IV [RC] CONT Placement to Observation Routine Physician Instructions: Reason for Visit: Cellulitis left lower extremity Is VTE Prophylaxis Indicated?: Yes 01/29/17 08:27 DiphenhydraMINE [Benadryl] 25 mg PO Q6HR PRN LORazepam [Ativan] 0.5 mg PO HS PRN 01/29/17 08:30 0.9 % Sodium Chloride 1,000 ml IVC 75 mls/hr 01/29/17 09:00 Docusate [Colace] 100 mg PO DAILY Famotidine [Pepcid] 20 mg PO BID GuaiFENesin ER [Mucinex] 600 mg PO BID Nicotine Patch [Nicoderm] 21 mg TD DAILY Vancomycin [Vancocin (wt based)] 1,000 mg D5% in Water [Dextrose 5%] 250 ml IVPB RPHPROT 01/29/17 16:00 Piperacillin/Tazobactam [Zosyn] 3.375 gm D5% in Water (Mini-Bag+) [Dextrose 5 % (Minibag+) 100 ML] 100 ml IVPB Q8HR 01/29/17 21:00 Melatonin 3 mg PO HS 01/29/17 Breakfast Regular Diet Diet Modifications: 02/04/17 08:20 Urinalysis reflex Microscopic [URIN] Routine Specimen: Send someone from the department to collect Comment: Patient Problems (Last Updated 01/28/17 @ 23:14 by Miller Richmond DO) Cellulitis (Acute) Vital Signs Temp Pulse Resp BP Pulse Ox 01/29/17 06:43 98.2 F 77 18 128/71 100 01/29/17 03:27 97.9 F 79 16 122/69 97 01/28/17 23:27 98.3 F 97 17 130/64 100 01/28/17 22:53 18 126/76 01/28/17 22:37 74 18 126/76 100 01/28/17 21:20 76 18 126/78 100 01/28/17 18:39 98.3 F 72 18 123/73 100 Laboratory Results 01/28/17 01/28/17 01/28/17 Range/Units 19:16 19:16 19:16 WBC 21.5 H (4.3-11.1) K/mcL RBC 4.08 L (4.19-5.50) M/mcL Hgb 11.5 L (12.9-16.9) g/dL Hct 34.8 L (37.5-50.1) % MCV 85.3 (83.0-100.0) fL MCH 28.2 (28.0-33.3) pg MCHC 33.0 (31.6-35.5) g/dL RDW 14.6 H (11.5-14.5) % Plt Count 225 (140-400) K/mcL MPV 9.9 (9.4-12.4) fL Immature Gran % 0.6 (0-4) % Seg Neutrophils % 89.8 % Lymphocytes % 5.5 % Monocytes % 3.7 % Eosinophils % 0.2 % Basophils % 0.2 % Neutrophils # 19.4 H (1.6-8.9) K/mcL Lymphocytes # 1.2 (0.6-4.6) K/mcL Monocytes # 0.8 (0.0-1.3) K/mcL Eosinophils # 0.0 (0.0-0.6) K/mcL Basophils # 0.0 (0.0-0.2) K/mcL Sodium 135 L (136-145) mEq/L Potassium 3.9 (3.5-4.5) mEq/L Chloride 103 (98-109) mEq/L Carbon Dioxide 25 (19-29) mEq/L BUN 18 (8-26) mg/dL Creatinine 0.84 (0.72-1.25) mg/dL Est GFR ( Amer) > 60 (> 60) Est GFR (Non-Af Amer) > 60 (> 60) BUN/Creatinine Ratio 21 (6-26) Glucose 121 H (70-99) mg/dL Calculated Osmolality 283 (280-300) Lactic Acid 0.9 (0.5-2.2) mmol/L Calcium 8.7 (8.6-10.8) mg/dL Assessments/Treatments ED Discharge Assessment Start: 01/28/17 18: 39 Freq: Status: Active Document 01/28/17 22:53 MPS (Rec: 01/28/17 22:54 [facility] [id number]) ED Discharge Assessment ED Discharge Disposition Admitted Med Rec/Patient Pharmacy Completed? Yes Admitted to 3NE Bed assigned [id number] Transported by equipment maintenance technician Transported with IV Report given to Nurse Care transferred to (name/credentials) Loan RN Information relayed patient's care treatments medications given condition recent/anticipated changes Clinical Documentation Summary Provided Yes Pain Scale 2 Pain Scale Used Standard (1-10) Blood Pressure 126/76 Heart rate 74 Respiratory Rate 18 Oxygen Delivery Room Air Oxygen Saturation 99 Critical Care Minutes 45 ED Nontraumatic Extremity Injury Assmnt Start: 01/28/17 18: 39 Freq: Status: Complete Document 01/28/17 18:59 AMP (Rec: 01/28/17 19:03 AMP [id number]) Extremity Problem Nontraumatic Symptoms/Complaint Extremity Pain Extremity Swelling Onset 1 week Consistency Constant Context Unknown Improves With Nothing Worsens With Weight Bearing Walking Associated Symptoms Denies Other Symptoms Level Of Consciousness Awake Alert Appropriate Follows Commands Patient Orientation Person Place Time Name Age Date of Day of Month Day of Week Month Year Time of Day Respiratory Depth Normal Respiratory Effort Normal for Patient Respiratory Pattern Regular Left Lower Extremity Pain Description Burning Throbbing Intensity 10 Scale Used Numeric (1 - 10) Capillary Refill < 3 Seconds Left Leg Strength Mild Weakness Left Leg Movement Description +4 - Full ROM, Less Than Normal Strength. Left Lower Extremity Edema Type Pitting Edema Degree 2+ Left Lower Leg Skin Color/Appearance Red Temperature Warm ED Comment Pt states he started developing a red rash to LLE with edema 3 days ago that has became worse and has difficulty ambulating Fall Precautions Acute Start: 01/28/17 23: 27 Freq: Q12H Status: Active Document 01/28/17 23:47 AUGIE (Rec: 01/28/17 23:54 AUGIE [id number]) Macias Lyles Fall Risk Assessment Tool Age less than60 years age (0 points) Fall History One fall within the last 6 months before admission (5 points) Elimination, Bowel, and Urine N/A (0 pts) Medications: Includes BUILDINGS AND GROUNDS SUPERVISOR/opiates, N/A (0 points) antivulsants, ant-hypertensives, diuretics, hypnotics, Patient Care Equipment: Any equipment One present (1 point) that tethers patient (e.g. IV infusions, chest tube, indwelling Mobility Requires assistance or supervision for transfer/ ambulation (2 points) Unsteady gait (2 points) Cognition N/A (0 points) Total Fall Risk Score 10 Fall Risk Category Moderate Risk (6-13) Fall Risk Interventions Low Risk Interventions Bed in lowest position Top side rails up x 2 Secure brake on bed Use properly fitting non-skid footwear Call light and frequently needed objects within reach Encourage patients/families to call for assistance when needed Fall education including risk assessment, injury risk and routine/ Inspect environment for safety and communication risk Supervise and assist with toileting/ADLs as needed Moderate Risk Interventions Institue fall-risk tooklit ( yellow flag, yellow non-skid socks and Frequent reorientation for confused patients IV-Invasive Line Management Start: 01/28/17 23: 27 Freq: Q4H Status: Active Document 01/28/17 23:47 AUGIE (Rec: 01/28/17 23:54 AUGIE [id number]) IV/Invasive Line Assessment Left Upper Arm Reason for Line Insertion/Rationale for Replace Lost Fluids Insertion Maintain Electrolyte Balance Provide Access for IV Medication(s) Provide Access for Blood Provide Access for Emergency Gauge (gauge) 18 IV Catheter Type Peripheral IV Site Observation Patent Site Observation Intervention Inspected Line Dressing Applied Window Dressing Dry/Intact Line Care Saline Flush P-Locked Labs drawn from Line* No Document 01/29/17 04:03 AUGIE (Rec: 01/29/17 04:05 AUGIE [id number]) IV/Invasive Line Assessment Left Upper Arm Reason for Line Insertion/Rationale for Replace Lost Fluids Insertion Maintain Electrolyte Balance Provide Access for IV Medication(s) Provide Access for Blood Provide Access for Emergency Gauge (gauge) 18 IV Catheter Type Peripheral IV Site Observation Patent Site Observation Intervention Inspected Line Dressing Applied Window Dressing Dry/Intact Line Care Saline Flush P-Locked Labs drawn from Line* No Initial Patient Assessment Start: 01/28/17 23: 27 Freq: .ONCE Status: Active Document 01/28/17 23:29 AUGIE (Rec: 01/28/17 23:37 AUGIE [id number]) General Questions Date of Arrival on Unit 01/28/17 Time of Arrival on Unit 23:20 Admitted From Emergency Dept Chief Complaint Left leg pain/sweeling/redness Onset of Chief Complaint 01/25/17 History Provided By Patient Orientation To Call Light Bed Phone TV Bathroom Smoking Policy Visiting Hours Procedures ID Bracelet On Emergency Contact Name Pat So Relationship to Patient Emergency Contact Bands applied ID band Patient Health Portal Patient was provided information on Yes accessing patient portal Patient Requests Portal Enrollment No Reason No Portal Enrollment Other Malnutrition Screening Tool (MST) Have You Recently Lost Weight Without No Trying Advance Directives Advance Directives No Advance Directives Information Provided Yes Patient Rights Copy of Rights Given and Verbalizes Yes Understanding Tobacco Free [place]: Copy of AHS Yes Statement Given and Patient Verbalizes Understanding Communication Ability Preferred Language Filipino Manager Desktop Required No Ability to Follow Directions Excellent Able to Read Yes Able to Write Yes Communication Tools None Learning Preferences Discussion Hearing Ability Normal Visual Assistive Devices None Pain Assessment Do You Have Any Ongoing (Chronic) Pain No Problems Educated on Pain Scale Yes Past Medical History Medical history no medical history Male Surgical History other Additional surgical history "Part of right lung removed" about 3 years ago Psychiatric history no psych history Smoking Status Current every day smoker Smokeless Tobacco Status No Alcohol use occasionally Drug use none Occupational status employed Current living situation Home With Family Other Activity level Independent ambulation Recent Out of Country Travel Within the No Last 8 Weeks Exposure or Possible Exposure to Illness No During Travel Additional social history PT is currently in the [facility] Family History-Meaningful Use Mother Living Status Still Living Hx Family Cancer Yes: Breast cancer Psychosocial Over Age 75 and Lives Alone or Over Age No 80 Potential Need for Follow-up Care (ECF, No Home Health, ECT) Developmentally Disabled or History of No Mental Health Problems Diagnosis with Assisted Need or No Terminal Implications Financial Concerns No Suspected Abuse or Neglect No Suicidal or Homicidal Ideation No Functional Assessment Employment Status Program Development Specialist Employed Eating (Feeding) Ability Independent Bathing Ability Independent Upper Body Dressing Ability Independent Lower Body Dressing Ability Independent Ambulation Ability Independent Toileting Ability Independent Bladder Continent Bowel Continent Normal Bowel Pattern 1 to 3 Times Weekly Date of Last Known Bowel Movement 01/25/17 Intake and Output, Strict Start: 01/28/17 23: 27 Freq: Q8H Status: Active Document 01/28/17 23:27 DFD (Rec: 01/29/17 00:20 DFD [id number]) Intake and Output Intake, Oral Amount 0 Output, Urine Amount 0 Measure weight Start: 01/28/17 23: 27 Freq: Status: Active Document 01/28/17 23:27 DFD (Rec: 01/29/17 00:21 DFD [id number]) Height and Weight Height 1.91 m Weight 70 kg Weight Measurement Method Built in [facility] Body Mass Index (BMI) 19.26 BMI Classification Normal Oxygen administration Start: 01/28/17 23: 27 Freq: Q12H Status: Active Document 01/28/17 23:47 AUGIE (Rec: 01/28/17 23:54 AUGIE [id number]) Oxygen Oxygen Delivery Method Room Air Comment PT states no JORDY/SOB at this time, will conitnue to monitor Patient Belongings Start: 01/28/17 23: 27 Freq: .ONCE Status: Active Document 01/28/17 23:29 AUGIE (Rec: 01/28/17 23:37 AUGIE [id number]) Patient Belongings Belongings With Patient on Admission Yes At Bedside Patient Belongings Pants Shirt Patient Rounding Start: 01/28/17 18: 39 Freq: Q30M Status: Active Document 01/28/17 18:59 AMP (Rec: 01/28/17 19:03 AMP [id number]) Patient Rounding Safety Call Light Within Reach Bed Position Low Bed Brake On Side Rails Up X1 Are the Floors Free From Trip Hazards? Yes Is the Room Free From Clutter? Yes Rounding Completed? Yes Patient Rounding Updated patient/family on Plan of Care Checked for Patient Positioning Patient Personal Items Placed Within Reach Checked Patient Pain Level Patient Awake Patient Rounding Start: 01/28/17 23: 27 Freq: Q1H Status: Active Document 01/28/17 23:47 AUGIE (Rec: 01/28/17 23:54 AUGIE [id number]) Hourly Rounding Hourly Rounding Checked for Patient Positioning Patient Personal Items Placed Within Reach Checked Patient Pain Level Hourly Rounding Completed Yes Patient Awake Is family present? No Comment Officer from [facility] with PT Equipment in Use Specialty Bed Safety Call Light Within Reach Bed Position Low Fall Precautions Phone Within Reach Bed Brake On Side Rails Up X2 Are the Floors Free From Trip Hazards? Yes Is the Room Free From Clutter? Yes Turn and Postion Bedrest No Turn Q 2HR No Patient Position Back Document 01/29/17 00:49 AUGIE (Rec: 01/29/17 00:49 AUGIE [id number]) Hourly Rounding Hourly Rounding Checked for Patient Positioning Patient Personal Items Placed Within Reach Checked Patient Pain Level Hourly Rounding Completed Yes Patient Awake Is family present? No Equipment in Use Specialty Bed Safety Call Light Within Reach Bed Position Low Fall Precautions Phone Within Reach Bed Brake On Side Rails Up X2 Are the Floors Free From Trip Hazards? Yes Is the Room Free From Clutter? Yes Turn and Postion Bedrest No Turn Q 2HR No Patient Position Back Document 01/29/17 02:00 DFD (Rec: 01/29/17 02:03 DFD [id number]) Hourly Rounding Hourly Rounding Checked for Patient Positioning Patient Helped to Bathroom or Assisted with Bedpan or Urinal Patient Personal Items Placed Within Reach Checked Patient Pain Level Hourly Rounding Completed Yes Patient Awake Is family present? No Safety Call Light Within Reach Bed Position Low Bed Exit Alarm Fall Precautions Phone Within Reach Bed Brake On Side Rails Up X2 Are the Floors Free From Trip Hazards? Yes Is the Room Free From Clutter? Yes Turn and Postion Bedrest No Turn Q 2HR No Patient Position Back Positioning Aides Pillows Document 01/29/17 04:03 AUGIE (Rec: 01/29/17 04:05 AUGIE [id number]) Hourly Rounding Hourly Rounding Checked for Patient Positioning Patient Personal Items Placed Within Reach Checked Patient Pain Level Hourly Rounding Completed Yes Patient Resting With Eyes Closed Is family present? No Equipment in Use Specialty Bed Safety Call Light Within Reach Bed Position Low Fall Precautions Phone Within Reach Bed Brake On Side Rails Up X2 Are the Floors Free From Trip Hazards? Yes Is the Room Free From Clutter? Yes Turn and Postion Bedrest No Turn Q 2HR No Patient Position Back Document 01/29/17 06:43 FLORENTIN (Rec: 01/29/17 06:47 FLORENTIN [id number]) Hourly Rounding Hourly Rounding Checked for Patient Positioning Patient Personal Items Placed Within Reach Hourly Rounding Completed Yes Patient Awake Is family present? Yes Safety Call Light Within Reach Bed Position Low Bed Exit Alarm Fall Precautions Phone Within Reach Bed Brake On Side Rails Up X2 Are the Floors Free From Trip Hazards? Yes Is the Room Free From Clutter? Yes Turn and Postion Bedrest No Turn Q 2HR No Patient Position Back Document 01/29/17 07:15 [facility] (Rec: 01/29/17 08:30 [facility] [id number]) Hourly Rounding Hourly Rounding Checked for Patient Positioning Patient Personal Items Placed Within Reach Hourly Rounding Completed Yes Patient Awake Is family present? Yes Safety Call Light Within Reach Bed Position Low Bed Exit Alarm Fall Precautions Phone Within Reach Bed Brake On Side Rails Up X2 Are the Floors Free From Trip Hazards? Yes Is the Room Free From Clutter? Yes Turn and Postion Bedrest No Document 01/29/17 08:10 FLORENTIN (Rec: 01/29/17 08:10 [place] [id number]) Hourly Rounding Hourly Rounding Checked for Patient Positioning Patient Personal Items Placed Within Reach Hourly Rounding Completed Yes Patient Sleeping Is family present? Yes Safety Call Light Within Reach Bed Position Low Bed Exit Alarm Fall Precautions Phone Within Reach Bed Brake On Side Rails Up X2 Are the Floors Free From Trip Hazards? Yes Is the Room Free From Clutter? Yes Turn and Postion Bedrest No Turn Q 2HR No Patient Position Back Saline lock insertion/management Start: 01/28/17 21: 49 Freq: Status: Complete Document 01/28/17 21:49 MPS (Rec: 01/28/17 21:50 MPS [id number]) IV Insertion/Site Assessment IV Attempt 4 Successful Successful Blood drawn and sent to Lab No Left Upper Arm IV Established HOTEL OR MOTEL MANAGER No Date of Insertion 01/28/17 Time of Insertion 21:49 Reason for IV Insertion Provide Access for IV Medication(s) IV Catheter Type Peripheral IV Gauge (gauge) 18 Site Observation Patent Dressing Applied Transparent Dressing Dry/Intact Patient Tolerance Tolerated Well Sepsis Screening Start: 01/28/17 23: 27 Freq: Q8H Status: Active Document 01/28/17 23:47 AUGIE (Rec: 01/28/17 23:54 AUGIE [id number]) Sepsis Screening Sepsis Infection Criteria Present suspected infection Sepsis SIRS Criteria WBC > 12k or < 4k or bands > 10% Sepsis Screen No Definite Risk Sepsis Action Taken no action required Skin Risk Assessment Scale Start: 01/28/17 23: 27 Freq: Q12H Status: Active Document 01/28/17 23:47 AUGIE (Rec: 01/28/17 23:54 AUGIE [id number]) Skin Risk Assessment Scale Moisture Risk Rarely Moist Sensory Perception No Impairment Activity Risk Walks Occasionally Mobility Risk Slightly Limited Nutrition Risk Adequate Friction & Shear Risk No Apparent Problem Skin Risk Total Score (points) 20 System Review Start: 01/28/17 23: 27 Freq: Q8H Status: Active Document 01/28/17 23:47 AUGIE (Rec: 01/28/17 23:54 AUGIE [id number]) Pain Assessment Pain Present Reports Pain Left Lower Extremity Pain Intensity 10 Description Throbbing Scale Used Numeric (1 - 10) Pain Intervention Ice Neurological Assessment Eye Opening Spontaneous Motor Obeys Commands Verbal Oriented Coma Scale Total 15 Neurologic Status Alert Patient Orientation Person Place Time Arousable To Name Speech Pattern Normal rate Normal rhythm Normal tone Appropriate Clear Coherent Patient Behavior Appropriate Cooperative Mood Description Calm Relaxed Appropriate Bilateral Pupil Reaction Reactive Pupil [place] Equal Scleral Edema No Left Leg Strength Normal for Patient Administrative Assistant Coordinator Strength Equal Push/Pull Equal Numbness/Tingling No Facial Symmetry Symmetrical Cardiovascular Assessment Signs and Symptoms None Heart Sounds S1 & S2 Pulse Rhythm Regular Jugular Vein Distention None Capillary Refill < 3 Seconds Circulatory Tenderness Description None Right Radial 2+ Left Radial 2+ Right Dorsalis Pedis 2+ Left Dorsalis Pedis 2+ Right Posterior Tibialis 2+ Left Posterior Tibialis 2+ Left Lower Extremity Type Non-Pitting Mechanical Prophylaxis No Respiratory Assessment Respiratory Symptoms None Effort Spontaneous Non-Labored Depth Normal Respiratory Pattern Regular Chest Shape Normal Expansion Symmetrical All Lung [place] Clear Oxygen Delivery Method Room Air Cough Description None Sputum Amount None Respiratory Comment: PT states no JORDY/SOB at this time, will continue to monitor Gastrointestinal Assessment Abdomen Description Soft Non-Tender Large Round 3 or more loose stools, in less than 24 No hours Nausea/Vomiting Presence None GI Comment: PT states has been experiencing N/V the last couple days but none at this time All Four Quadrants Active Flatus Presence Present Genitourinary Assessment Genitourinary Symptoms None Bladder Pattern Normal Voiding Method Urinal Bladder Distention None Suprapubic Tenderness with Palpation No Comment: No urine to assess at this time, will continue to monitor Integumentary Assessment Nail Bed Appearance [place] Temperature Warm Moisture Dry Turgor Normal Color Normal All Pressure Points Assessed Yes Evidence of Incision/Wounds/Breakdown No Mucous membranes moist, pink and intact Yes Oral Cavity Normal Musculoskeletal Assessment Musculoskeletal Symptoms Generalized Weakness Teaching Record Start: 01/28/17 23: 27 Freq: Q12H Status: Active Document 01/28/17 23:27 DFD (Rec: 01/29/17 00:20 DFD [id number]) Teaching Record: General Education Topics Hospital Environment Equipment Use Response Verbalize understanding Methods Discussion Recipient Patient Education Provided: Details use of call light and tv remote Thrombosis Risk Factor Assessment Start: 01/28/17 23: 27 Freq: .ONCE Status: Active Document 01/28/17 23:29 AUGIE (Rec: 01/28/17 23:37 AUGIE [id number]) Thrombosis Risk Factor Assessment Other Risk Factors No Triage Start: 01/28/17 18: 39 Freq: Status: Complete Document 01/28/17 18:39 MAS (Rec: 01/28/17 18:41 MAS [id number]) Triage Chief Complaint triage ED Extremity Problem, Nontraumatic Patient Stated Complaint Left thigh and calf redness JANEL 3 Onset (ago) day(s) Description of Symptoms Patient with three days of left calf and thigh swelling and redness. Patient in police custody. General Appearance alert in no apparent distress Work Related Injury? No Mode of arrival ambulatory Source patient police Limitations language barrier Ebola Risk: Travel/Contact With Anyone No From Affected Area/s Has Patient Experienced Ebola Symptoms No Temperature (97.6 F-99.6 F) 98.3 F Temperature Source Oral Pulse Rate 72 Respiratory Rate 18 Blood Pressure 123/73 O2 Sat by Pulse Oximetry (95-100) 100 Oxygen Delivery Room Air Height 1.85 m Weight 79.379 kg Weight Measurement Method Stated by Patient Pain Scale 10 Pain Scale Used Standard (1-10) Medical history no medical history Additional surgical history [facility] lung surgery Psychiatric history no psych history Smoking Status Current every day smoker Smokeless Tobacco Status No Alcohol Use occasionally Drug Use none 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 No Influenza vaccine up to date No Pneumonia vaccine up to date No Tetanus UTD unsure Vital Signs Assessment Start: 01/28/17 18: 39 Freq: Status: Active Document 01/28/17 21:20 MPS (Rec: 01/28/17 21:21 [id number] ED Vital Signs Pain Reported Pain Reported Pain Scale 3 Pain Scale Used Standard (1-10) Blood Pressure 126/78 Pulse Rate 76 Respiratory Rate 18 Depth Normal Effort Non-Labored Pattern Regular Pulse Oximetry (95-100) 100 Oxygen Delivery Room Air Document 01/28/17 22:37 MPS (Rec: 01/28/17 22:37 [email or web address][id number]) ED Vital Signs Pain Reported Pain Reported Pain Scale 3 Pain Scale Used Standard (1-10) Blood Pressure 126/76 Pulse Rate 74 Respiratory Rate 18 Depth Normal Pulse Oximetry (95-100) 100 Oxygen Delivery Room Air Vital Signs Assessment Start: 01/28/17 23: 27 Freq: Q4H Status: Active Document 01/28/17 23:27 DFD (Rec: 01/29/17 00:20 DFD [id number]) Vital Signs with MEWS Temperature (97.6 F-99.6 F) 98.3 F Temperature Source Oral Pulse Rate 97 Respiratory Rate 17 Pulse Oximetry (95-100) 100 Oxygen Delivery Room Air Blood Pressure 130/64 Blood Pressure Location Right Arm Source Automatic Cuff Position Supine Neuro Status *recalled from last Alert documentation MEWS Score 1 Document 01/29/17 03:27 DFD (Rec: 01/29/17 04:28 DFD [id number]) Vital Signs with MEWS Temperature (97.6 F-99.6 F) 97.9 F Temperature Source Oral Pulse Rate 79 Respiratory Rate 16 Pulse Oximetry (95-100) 97 Oxygen Delivery Room Air Blood Pressure 122/69 Blood Pressure Location Right Arm Source Automatic Cuff Position Supine Neuro Status *recalled from last Alert documentation MEWS Score 1 Document 01/29/17 06:43 JJG (Rec: 01/29/17 06:47 JJG [id number]) Vital Signs with MEWS Temperature (97.6 F-99.6 F) 98.2 F Temperature Source Oral Pulse Rate 77 Respiratory Rate 18 Pulse Oximetry (95-100) 100 Oxygen Delivery Room Air Blood Pressure 128/71 Blood Pressure Location Right Arm Wound Assessment Start: 01/28/17 23: 27 Freq: Q8H Status: Active Document 01/28/17 23:47 AUGIE (Rec: 01/28/17 23:54 AUGIE [id number]) Drains Tube/Drain Discontinued No Discharge Information ED Provider: Jeancarlos Andrade Status: Departed Time Seen by Provider: 01/28/17 18:49 Condition: Serious Triaged At: 01/28/17 18:39 Emergency Discharge Date/Time: 01/28/17 23:08 Emergency Discharge Disposition: Admitted As Inpatient Clinical Impression Cellulitis Emergency Discharge Comment: Admit Intervention Last Done ED Nontraumatic Extremity Injury Assmnt 01/28/17 18:59 Query Result Extremity Problem Symptoms/Complaint Extremity Pain Extremity Swelling Extremity Problem Onset 1 week Extremity Problem Consistency Constant Extremity Context Unknown Extremity Improves With Nothing Extremity Worsens With Weight Bearing Walking Extremity Associated Symptoms Denies Other Symptoms Level Of Consciousness Awake Alert Appropriate Follows Commands Patient Orientation Person Place Time Name Age Date of Day of Month Day of Week Month Year Time of Day Respiratory Depth Normal Respiratory Effort Normal for Patient Respiratory Pattern Regular Left Lower Extremity -Pain Description Burning Throbbing -Pain Intensity 10 -Pain Scale Used Numeric (1 - 10) Capillary Refill < 3 Seconds Left Leg -Muscle Strength (Extremity) Mild Weakness Left Leg -Movement Description +4 Left Lower Extremity -Edema Type Pitting -Edema Degree 2+ Left Lower Leg -Skin Color/Appearance Red -Skin Temperature Warm ED Comment Pt states he started developing a red rash to LLE with edema 3 days ago that has became worse and has difficulty ambulating ED Discharge Assessment 01/28/17 22:53 Query Result ED Discharge Disposition Admitted Med Rec/Patient Phamracy completed? Yes ED Admit to 3NE Bed assigned [id number] Transported by equipment maintenance technician Transported with IV Report given to Nurse Care transferred to Loan RN Information relayed patient's care treatments medications given condition recent/anticipated change Clinical Documentation Summary Provided Yes Severity scale (1-10) 2 Pain Scale Used Standard (1-10) Blood Pressure 126/76 Heart rate 74 Respiratory Rate 18 Oxygen Delivery Room Air Pulse Oximetry Reading 99 Critical Care Minutes 45 Observation Discharge Date/Time: Observation Discharge Disposition: Observation Discharge Comment: Instructions: Stand-Alone Forms: Prescriptions: Visit Report - Forms: - Referrals: NO,PCP (Primary Care Provider) Radiology Results Lower Extremity CT 01/28/17 19:32
[2017-01-29] MEDS: Nicotine 21 MG PATCH.TD24 TD SCH (08:53)
[2017-01-29] MEDS: Famotidine 20 MG TABLET PO SCH ×2 (08:53→20:20)
[2017-01-29] MEDS: 0.9 % Sodium Chloride 1,000 ML IVC SCH (08:56)
[2017-01-29] MEDS ORDERED: Vancomycin 1,000 MG in D5% in Water 250 ML IVPB SCH (09:00)
[2017-01-29] MEDS ORDERED: Albuterol 2.5 MG/3 ML NEBULIZER IH PRN (09:17)
[2017-01-29] MEDS: Ipratropium/Albuterol Neb 3 ML IH SCH ×3 (11:25→23:15)
[2017-01-29 12:28] LABS: Basophils % 0.3 %; Eosinophils # 0.1 K/mcL (0.0-0.6); Eosinophils % 0.8 %; Hematocrit 34.2 % (37.5-50.1); Hemoglobin 11.4 g/dL (12.9-16.9); Immature Granulocytes % 0.5 % (0-4); Lymphocytes # 1.6 K/mcL (0.6-4.6); Lymphocytes % 9.9 %; Mean Corpuscular HGB Conc 33.3 g/dL (31.6-35.5); Mean Corpuscular Hemoglobin 28.7 pg (28.0-33.3); Mean Corpuscular Volume 86.1 fL (83.0-100.0); Mean Platelet Volume 10.2 fL (9.4-12.4); Monocytes # 0.7 K/mcL (0.0-1.3); Monocytes % 4.6 %; Neutrophils # 13.4 K/mcL (1.6-8.9); Platelet Count 203 K/mcL (140-400); Red Blood Count 3.97 M/mcL (4.19-5.50); Red Cell Distribution Width 14.6 % (11.5-14.5); Segmented Neutrophils % 83.9 %
[2017-01-29 12:31] LABS: VBG HCO3 27.2 mEq/L (21-27); VBG PH 7.37 pH Units (7.32-7.42)
[2017-01-29 12:34] LABS: INR 1.3; Prothrombin Time 13.9 Seconds (9.4-12.1)
[2017-01-29 12:36] LABS: Activated Partial Thrombo Time 24.6 Seconds (26.0-36.0)
[2017-01-29 12:41] LABS: Alanine Aminotransferase 8 Units/L (0-55); Albumin 3.1 g/dL (3.5-5.0); Albumin/Globulin Ratio 0.7 (1.1-2.2); Alkaline Phosphatase 79 Units/L (38-126); Aspartate Amino Transferase 11 Units/L (5-34); BUN/Creatinine Ratio 13 (6-26); Bilirubin,Total 0.4 mg/dL (0.2-1.2); Blood Urea Nitrogen 13 mg/dL (8-26); C-Reactive Protein 150 mg/L (Less than 5); Calcium 8.6 mg/dL (8.6-10.8); Carbon Dioxide 25 mEq/L (19-29); Chloride 105 mEq/L (98-109); Globulin 4.4 g/dL (2.4-3.5); Glucose 156 mg/dL (70-99); Magnesium 2.2 mg/dL (1.6-2.6); Osmolality,Calculated 287 (280-300); Phosphorous 1.8 mg/dL (2.3-4.7); Potassium 3.4 mEq/L (3.5-4.5); Sodium 137 mEq/L (136-145); Total Protein 7.5 g/dL (6.0-8.3); eGFR For African Americans > 60 (> 60); eGFR For Non-African Americans > 60 (> 60)
[2017-01-29] MEDS: *HR* OxyCODONE Immed Rel 5 MG TABLET PO PRN ×2 (12:52→20:21)
[2017-01-29] MEDS: Vancomycin 1,000 MG in D5% in Water 250 ML IVPB SCH ×2 (12:54→18:21)
[2017-01-29] MEDS: Piperacillin/Tazobactam 3.375 GM in D5% in Water (Mini-Bag+) 100 ML IVPB SCH ×2 (12:59→20:21)
[2017-01-29 14:04] LABS: Thyroid Stimulating Hormone 2.141 mcIU/mL (0.350-4.840)
[2017-01-29 14:10] LABS: Bilirubin,Urine Negative (Negative); Blood,Urine Negative (Negative); Clarity,Urine Clear (Clear); Color,Urine Yellow (Yellow); Glucose,Urine (UA) Normal (Normal); Ketones,Urine Negative (Negative); Leukocyte Esterase,Urine Negative (Negative); Nitrite,Urine Negative (Negative); PH,Urine 6.5 pH Units (5.0-8.0); Protein,Urine Negative (Neg-Trace); Specific Gravity,Urine 1.017 (1.010-1.025); Urobilinogen,Urine Normal (Normal)
[2017-01-29 14:14] LABS: Amphetamine Screen,Urine Negative ng/mL (Cutoff=1000); Barbiturate Screen,Urine Negative ng/mL (Cutoff=200); Benzodiazepines Screen,Urine Negative ng/mL (Cutoff=200); Cannabinoid Screen,Urine Negative ng/mL (Cutoff = 50); Cocaine Screen,Urine Negative ng/mL (Cutoff= 300); Opiate Screen,Urine Negative ng/mL (Cutoff=300); Phencyclidine Screen,Urine Negative ng/mL (Cutoff=25)
[2017-01-29 16:05] LABS: Hemoglobin A1C 5.3 %
--- NOTE | 2017-01-29 16:05 | Event Note ---
Date of Encounter: 01/29/17 Time of Encounter: 11:55 Patient continues to have swelling and redness in his left lower extremity. No fever reported since admission. On IV antibiotics. We will continue these medications. If no improvement in cellulitis, will consult infectious disease.
[2017-01-29] MEDS: Melatonin 3 MG TABLET PO SCH (20:20)
[2017-01-30] MEDS: *HR* OxyCODONE Immed Rel 5 MG TABLET PO PRN ×4 (03:36→23:38)
[2017-01-30] MEDS: Ipratropium/Albuterol Neb 3 ML IH SCH ×2 (04:51→10:50)
[2017-01-30] MEDS: Vancomycin 1,000 MG in D5% in Water 250 ML IVPB SCH (06:12)
[2017-01-30] MEDS: Piperacillin/Tazobactam 3.375 GM in D5% in Water (Mini-Bag+) 100 ML IVPB SCH ×3 (06:13→20:41)
[2017-01-30] MEDS: 0.9 % Sodium Chloride 1,000 ML IVC SCH (09:05)
[2017-01-30] MEDS: Famotidine 20 MG TABLET PO SCH ×2 (09:08→20:42)
[2017-01-30] MEDS: Nicotine 21 MG PATCH.TD24 TD SCH (09:09)
[2017-01-30 10:31] LABS: Adenovirus Not Detected (Not Detect); Bordetella Pertussis Not Detected (Not Detect); Chlamydophila pneumoniae Not Detected (Not Detect); Coronavirus 229E Not Detected (Not Detect); Coronavirus HKU1 Not Detected (Not Detect); Coronavirus NL63 Not Detected (Not Detect); Coronavirus OC43 Not Detected (Not Detect); Human Metapneumovirus Not Detected (Not Detect); Human Rhinovirus/Enterovirus Not Detected (Not Detect); Influenza A Subtype 2009 H1 Not Detected (Not Detect); Influenza A Untypeable Not Detected (Not Detect); Influenza B Not Detected (Not Detect); Mycoplasma pneumoniae Not Detected (Not Detect); Parainfluenza Virus 1 Not Detected (Not Detect); Parainfluenza Virus 2 Not Detected (Not Detect); Parainfluenza Virus 3 Not Detected (Not Detect); Parainfluenza Virus 4 Not Detected (Not Detect); Respiratory Syncytial Virus Not Detected (Not Detect)
--- NOTE | 2017-01-30 11:20 | Internal Med Progress Note ---
Date of Encounter: 01/30/17 Time of Encounter: 09:00 - Assessment and plan (1) Cellulitis of left lower extremity Current Visit: Yes Status: Acute Assessment and plan: Improving clinically. Continue current antibiotics. If he continues to improve , he will be able to be discharged home tomorrow on oral antibiotics. Moderate risk for complications. (2) Ascending lymphangitis Current Visit: Yes Status: Acute Assessment and plan: Due to acute cellulitis of the left lower extremity. Improving (3) Lymphadenopathy, inguinal Current Visit: Yes Status: Acute (4) Sepsis affecting skin Current Visit: Yes Status: Acute Assessment and plan: Continues to improve. Blood cultures have been negative so far - Subjective Interval history: Swelling and erythema in left lower extremity is improving. No fever or chills or night sweats reported overnight. Pain is well controlled. - Constitutional Vitals: Temp Pulse Resp BP Pulse Ox 97.8 F 63 14 114/59 100 01/30/17 10:42 01/30/17 10:42 01/30/17 10:42 01/30/17 10:42 01/30/17 10:42 General appearance: Present: cooperative, mild distress, A&O X 3, pleasant, answers questions appropriately - Respiratory Respiratory exam: Present: CTAB. Absent: accessory muscle use, rales, rhonchi, wheezes - Cardiovascular Cardiovascular exam: Present: RRR, +S1, +S2. Absent: diastolic murmur, gallop, rubs, systolic murmur - GI/Abdominal GI/Abdominal exam: Present: normal bowel sounds, soft, no peritoneal signs. Absent: distended, tenderness - Extremities Exam Extremities exam: Present: tenderness (Left lower leg), warm, radial pulses palpable and symetrical. Absent: calf tenderness, cyanotic, pedal edema Additional comments: Erythema over the left lower leg and left foot improving. Swelling still present but subsiding. Less tender compared to yesterday. - Skin Skin exam: Present: dry, erythema (as Described above), intact Internal Medicine: Result - Labs CBC & Chem 7: 01/29/17 12:20 01/29/17 12:20 Labs: Short CBC 01/29/17 Range/Units 12:20 WBC 16.0 H (4.3-11.1) K/mcL Hgb 11.4 L (12.9-16.9) g/dL Hct 34.2 L (37.5-50.1) % Plt Count 203 (140-400) K/mcL Neutrophils # 13.4 H (1.6-8.9) K/mcL BMP 01/29/17 12:20 Sodium 137 Potassium 3.4 L Chloride 105 Carbon Dioxide 25 BUN 13 Creatinine 1.01 Glucose 156 H Calcium 8.6 Liver Function 01/29/17 Range/Units 12:20 Total Bilirubin 0.4 (0.2-1.2) mg/dL AST 11 (5-34) Units/L ALT 8 (0-55) Units/L Alkaline Phosphatase 79 (38-126) Units/L Albumin 3.1 L (3.5-5.0) g/dL Urine 01/29/17 Range/Units 14:02 Urine Color Yellow (Yellow) Urine Clarity Clear (Clear) Urine pH 6.5 (5.0-8.0) pH Units Ur Specific [place] 1.017 (1.010-1.025) Urine Protein Negative (Neg-Trace) mg/dL Urine Glucose (UA) Normal (Normal) mg/dL - ABG Interpretation ABG results: PT/INR, D-dimer PT 13.9 Seconds (9.4-12.1) H 01/29/17 12:20 - Impressions Impressions Chest X-Ray 01/29/17 09:17 IMPRESSION: 1. Mild patchy right upper lobe opacities which may represent bronchopneumonia. 2. Trace bilateral pleural effusions. D/ / 01/29/2017 13:26:13 Galdino García MD / arianna Interpreting Provider: Galdino García MD Consult Discharge Plan - Plan Referrals: NO,PCP [Primary Care Provider] - - Attending Attestation This document has been at least partially created by [employer] recognition technology by Dr. Toscano. Errors in grammar, wording or other phrases may exist. If errors are found after the documentation is signed, they will be addressed individually in the addendum section of this document when appropriate.
[2017-01-30] MEDS ORDERED: D5% in Water (Mini-Bag+) 100 ML IVPB ONE (13:09)
[2017-01-30] MEDS: Vancomycin 1,500 MG in D5% in Water 250 ML IVPB SCH (18:15)
[2017-01-30] MEDS: Melatonin 3 MG TABLET PO SCH (20:42)
[2017-01-31] MEDS: 0.9 % Sodium Chloride 1,000 ML IVC SCH (00:36)
[2017-01-31] MEDS: Vancomycin 1,500 MG in D5% in Water 250 ML IVPB SCH (04:47)
[2017-01-31] MEDS: Piperacillin/Tazobactam 3.375 GM in D5% in Water (Mini-Bag+) 100 ML IVPB SCH (04:47)
[2017-01-31 06:51] VITALS: BP 120/69
[2017-01-31] MEDS: Nicotine 21 MG PATCH.TD24 TD SCH (08:13)
[2017-01-31] MEDS: Famotidine 20 MG TABLET PO SCH (08:13)
[2017-01-31] MEDS: *HR* OxyCODONE Immed Rel 5 MG TABLET PO PRN (08:19)
--- NOTE | 2017-01-31 09:42 | Discharge Summary ---
Date of Encounter: 01/31/17 Time of Encounter: 09:00 - Discharge Diagnosis (1) Cellulitis of left lower extremity Priority: Primary Status: Acute (2) Ascending lymphangitis Priority: Secondary Status: Acute (3) Lymphadenopathy, inguinal Priority: Secondary Status: Acute (4) Sepsis affecting skin Priority: Secondary Status: Acute - Discharge Medications Prescriptions: Oxycodone HCl/Acetaminophen [Percocet 5-325 mg Tablet] 1 each PO Q6HR PRN #14 tablet PRN Reason: severe pain Sulfamethoxazole/Trimeth DS [Bactrim DS] 1 each PO BID #20 tablet Home Medications: Oxycodone HCl/Acetaminophen [Percocet 5-325 mg Tablet] 1 each PO Q6HR PRN #14 tablet 01/31/17 [Rx] Sulfamethoxazole/Trimeth DS [Bactrim DS] 1 each PO BID #20 tablet 01/31/17 [Rx] Allergies/Adverse Reactions: Allergies No Known Allergies Allergy (Verified 07/17/15 11:31) Procedures/tests Complete & Pending: Procedures Performed prior 72 hours Category Date Time Status ECG 12 lead ECG [ECG] Routine Y 01/29/17 09:17 Ordered Date of admission: 01/28/17 22:34 Primary care physician: PCP NO Consults: 01/29/17 09:17 Consult to Nurse Navigator [CONS] Routine Comment: Discharging clinician: Mya Toscano Anticipated date of discharge: 01/31/17 - Patient Status Disposition: Home, Self-Care Condition: Good Functional capacity at discharge: independent ambulation Overall status at discharge: patient is progressing back to baseline - Discharge Instructions Instructions: Cellulitis (DC) Follow Up With: NO,PCP [Primary Care Provider] - (in 1 week) Additional Instructions: Keep left lower extremity elevated in bed while lying down. Drink plenty of water while taking bactrim - Diet and Activity Activity: increase activity as tolerated Diet: advance to your usual diet Hospital course: Mr. Dugan is a 31 year old male patient with no past medical history was observed in hospital after presenting with cellulitis and swelling involving his left lower extremity below the knee and his foot. He was treated for this with IV antibiotics with improvement in his symptoms. Most of the erythema has now subsided although there is some swelling still remaining. He is clinically stable to be discharged home on oral antibiotics at this time. He is also advised to keep his lower extremity elevated while lying down or while sitting. If his symptoms get worse or chills etc. he is advised to come back to the ER. - Time Spent with Patient Total time spent providing and/or coordinating discharge services: Less than 30 minutes (25 min) - Constitutional Vitals: Temp Pulse Resp BP Pulse Ox 97.4 F L 58 16 120/69 99 01/31/17 06:45 01/31/17 06:45 01/31/17 06:45 01/31/17 06:45 01/31/17 06:45 General appearance: Present: cooperative, A&O X 3, pleasant, no acute distress, answers questions appropriately - Respiratory Respiratory exam: Present: CTAB. Absent: accessory muscle use, rales, rhonchi, wheezes - Cardiovascular Cardiovascular exam: Present: RRR, +S1, +S2. Absent: diastolic murmur, gallop, rubs, systolic murmur - Extremities Exam Extremities exam: Present: warm, radial pulses palpable and symetrical. Absent : calf tenderness, cyanotic, pedal edema Additional comments: Improving erythema and swelling in the left lower extremity - Neurological Exam Neurological exam: Present: alert, oriented X3, no focal deficits. Absent: facial droop, speech deficit - Skin Skin exam: Present: dry, intact
--- NOTE | 2017-01-31 10:03 | Electrocardiograph Report ---
[place] [id number] Test Date: 2017-01-29 Pat Name: Horacio Dugan Department: 114 Room: 3A23 Gender: M Bottom Liner: : 1985 Requested By: Amaury Ash Order Number: [id number] Reading MD: Devon Hartman MD Measurements Intervals [place] Rate: 79 P: 66 KS: 131 QRS: 55 QRSD: 105 T: 63 QT: 372 QTc: 407 Interpretive Statements SINUS RHYTHM Electronically Signed On 01-31-2017 10:01:32 EDT by Devon Hartman MD
[2017-01-31] MEDS ORDERED: Aminoglycoside Consult 1 EACH MC ONE (10:19)
== END 2017-01-31 10:20 | disposition home or self-care (01) ==
LOC: 3NENU 18:37 → EMEROO 18:37 → 3NENU 23:08 → 3ANU 01-29 16:26
PROVIDERS: ADMIT Internal Medicine; ATTEND Internal Medicine